=== PATIENT | female | born 1970 | race Two or more races ===

== ENCOUNTER 2024-08-19 11:40 | Emergency (ER) | payer MEDICAID, SELFPAY ==
[2024-08-19 11:41] VITALS: BMI 32.1
[2024-08-19 11:50] VITALS: BP 143/80; PULSE 96; RESP 16; TEMP 36.8; O2SAT 98
--- NOTE | 2024-08-19 11:54 | XR_ITS ---
Examination: CT abdomen and pelvis without contrast. Coronal 3-D reconstructions. Sagittal 2-D reconstructions. Date and time of exam:August 19, 2024 1229 hours Comparison 02/13/2023 INDICATIONS: Lower abdominal pain with nausea vomiting beginning 4 days ago CTDI: vol (mGy): 8.61 DLP: (mGycm): 175 Technique: Axial images of the abdomen have been obtained, 3 mm slice thickness Intravenous contrast material has not been administered. Low dose protocols were performed. One or more of the following dose reduction techniques were used; automated exposure control, adjustment of the mA and/or KV according to patient size, use of iterative reconstruction technique. Findings: No focal liver or splenic lesions Absent gallbladder No pancreatic or adrenal mass No renal or ureteral calculi, no hydronephrosis Aorta normal size 12 mm fat-containing umbilical hernia Normal appendix No bowel obstruction or diverticulitis Urinary bladder intact Absent uterus No pelvic mass Moderate osteopenia IMPRESSION: No renal or ureteral calculi, no hydronephrosis Normal appendix No bowel obstruction diverticulitis or free air
--- NOTE | 2024-08-19 11:54 | PD.EDRME ---
Rapid Medical Screening Exam [facility] Arrival date/time: 08/19/24 11:40 53-year-old female presents to the emergency department complaints of back pain, joint pain, abdominal pain, nausea vomiting Chief Complaint: Abdominal Pain Vital signs: Vital Signs Temperature 98.2 F 08/19/24 11:50 Pulse Rate 96 08/19/24 11:50 Respiratory Rate 16 08/19/24 11:50 Blood Pressure 143/80 H 08/19/24 11:50 Pulse Oximetry (%) 98 08/19/24 11:50 Oxygen Delivery Method Room Air 08/19/24 11:50
[2024-08-19] MEDS: KETOROLAC INJ 30 MG/ML VIAL IM (12:04)
[2024-08-19] MEDS: ONDANSETRON ODT 4 MG TABRAP PO (12:06)
[2024-08-19 12:14] LABS: Collection Type, Urine Clean Catch
[2024-08-19 12:16] LABS: Basophils % (Auto) 0 % (0-2.5); Eosinophils % (Auto) 0 % (0-10); Hematocrit 41.1 % (36.0-46.0); Hemoglobin 14.1 g/dL (12.0-16.0); Immature Granulocytes % (Auto) 0 % (0-0); Immature Granulocytes Auto 0.03 Thou/mm3 (0.00-0.00); Lymphocytes # (Auto) 2.5 Thou/mm3 (1.0-4.8); Lymphocytes % (Auto) 27 % (10-50); Mean Corpuscular HGB Conc 34.3 g/dl (31.0-37.0); Mean Corpuscular Hemoglobin 32.2 pg (25.0-35.0); Mean Corpuscular Volume 94 fL (80-100); Monocytes # (Auto) 0.5 Thou/mm3 (0.0-0.8); Monocytes % (Auto) 5 % (0-12); Neutrophils # (Auto) 6.4 Thou/mm3 (1.8-7.7); Neutrophils % (Auto) 67 % (37-80); Nucleated Red Blood Cell % 0 /100 WBC (0); Platelet Count 281 Thou/mm3 (140-440); RDW Standard Deviation 43.3 fL (36.4-46.3); Red Blood Count 4.38 Miln/mm3 (4.00-5.20); White Blood Count 9.5 Thou/mm3 (3.6-11.0)
[2024-08-19 12:33] LABS: Bacteria,Urine Rare; Bilirubin,Urine Negative (Negative); Blood,Urine Negative (Negative); Clarity,Urine Clear (Clear/Hazy); Color,Urine Lt-Yellow (Lt Yel-Yel); Culture Indicated,Urine Not Indicated; Glucose, Urine Negative (Negative); Ketones,Urine Negative (Negative); Leukocyte Esterase,Urine Negative (Negative); Nitrite,Urine Negative (Negative); Protein,Urine Negative (Neg - Trace); RBC,Urine 1 /hpf (0-3); Specific Gravity,Urine 1.012 (1.001-1.035); Squamous Epithelial Cell,Urine 3 /hpf (0-5); Urobilinogen,Urine Negative mg/dL (0.0-1.0); WBC,Urine < 1 /hpf (0-5)
[2024-08-19 12:33] LABS: Alanine Aminotransferase 15 U/L (10-49); Albumin, Serum 4.6 gm/dL (3.5-5.0); Albumin/Globulin Ratio 1.4 (1.2-2.2); Alkaline Phosphatase 55 U/L (46-116); Anion Gap 11 (7-16); Aspartate Amino Transferase 21 U/L (0-34); BUN/Creatinine Ratio 20 Ratio (12-20); Bilirubin,Total 0.7 mg/dL (0.3-1.2); Blood Urea Nitrogen 10 mg/dL (9-23); Calcium 10.3 mg/dL (8.3-10.6); Calcium (Corrected) 10.3 mg/dL (8.5-10.1); Carbon Dioxide 26.2 mMol/L (20.0-31.0); Chloride 99 mMol/L (98-107); Creatinine (Component) 0.5 mg/dL (0.6-1.3); Estimated Creatinine Clearance 122.3 mL/min (>60); Globulin 3.4 gm/dL (2.3-3.5); Glucose 66 mg/dL (74-106); Lipase 38 U/L (12-53); Osmolality,Calculated 268 (275-295); Potassium 3.1 mMol/L (3.4-5.1); Sodium 136 mMol/L (136-145); Troponin I < 0.002 ng/mL (0.0-0.045); eGFR > 60 See Note
--- NOTE | 2024-08-19 13:13 | EDNOTE_ITS ---
<Statement entered by Janet Toledo MD - 08/19/24 17:56> As co-signing physician, I was present and available for consult prn. I concur with the plan and care as documented by the midlevel provider. ED Abdominal Pain RME/HPI General Chief Complaint: Abdominal Pain Stated complaint: ABD PAIN WITH VOMITING RADIATING UP TO NECK Time seen by provider: 08/19/24 12:45 Arrival date/time: 08/19/24 11:40 53-year-old female presents to the emergency department complaints of back pain, joint pain, abdominal pain, nausea vomiting Limitations: no limitations RME / HPI RME / HPI narrative: 08/19/24 11:40 53-year-old female presents to the emergency department complaints of back pain, joint pain, abdominal pain, nausea vomiting Related Data Home Medications ?Medication ?Instructions ?Recorded ?Confirmed conjugated estrogens 0.625 mg 0.625 mg PO QDAY 9 09/07/22 tablet (Premarin) Previous Rx's ?Medication ?Instructions ?Recorded hydrocortisone 2.5 % topical cream 1 applic AL BID #30 grams 09/08/22 with perineal applicator (Anusol-HC) psyllium husk (aspartame) 3.4 gram 1 packet PO BID #60 ea 09/08/22 oral powder packet (Metamucil Fiber Singles) ibuprofen 600 mg tablet 600 mg PO Q6H #30 tabs 08/19 metoclopramide HCl 10 mg tablet 10 mg PO Q6H PRN nause a and 08/19/24 (Reglan) vomiting #30 tabs Allergies Allergy/AdvReac Type Severity Reaction Status Date / Time No Known Allergies Allergy Verified 08/19/24 11:41 Review of Systems Review of Systems Systems Reviewed: All systems reviewed, normal except as documented Constitutional Constitutional: Reports system reviewed and no additional complaints, except as documented, Reports body ache(s), Denies fever(s) and Denies headache(s) Eyes Eyes: Reports system reviewed and no additional complaints, except as documented and Denies blurry vision ENT Ears, Nose, Mouth, and Throat: Reports system reviewed and no additional complaints, except as documented, Denies headache(s), Denies nasal congestion and Denies nasal discharge Cardiovascular Cardiovascular: Reports system reviewed and no additional complaints, except as documented, Denies chest pain and Denies dyspnea Respiratory Respiratory: Reports system reviewed and no additional complaints, except as documented, Denies chest congestion, Denies cough and Denies dyspnea Gastrointestinal Gastrointestinal: Reports system reviewed and no additional complaints, except as documented and Reports abdominal pain Integumentary/Breasts Skin/Breast: Reports system reviewed and no additional complaints, except as documented and Denies rash Neurologic Neurologic: Reports system reviewed and no additional complaints, except as documented, Reports as per HPI and Denies headache(s) Past Medical History Past Medical History NEUROLOGIC: Positive Neurological Disorders and Migraine; Negative Seizures or Head Trauma CARDIAC: Negative Cardiac Disorders, Congestive Heart Failure, Edema, Cellulitis or Varicose Veins RESPIRATORY: Negative Chronic Obstructive Pulmonary Disease (COPD), Pneumonia, Tuberculosis or Sleep Apnea GASTROINTESTINAL: Positive Gastrointestinal Disorders, Pancreatitis, Gall Bladder Disease, Gastrointestinal Bleed, Hemorrhoids and Gastroesophageal Reflux Disease; Negative Colorectal Cancer GENITOURINARY: Positive Genitourinary Disorders (HEMATURIA); Negative Renal Disease REPRODUCTIVE: Positive Breast Cancer and Previous Pregnancies MUSCULOSKELETAL: Negative Musculoskeletal Disorders ENT: Negative Head Trauma ENDOCRINE: Negative Endocrine Disorders, Diabetes Mellitus Type 1, Diabetes Mellitus Type 2 or Hypothyroidism HEMATOLOGIC: Negative Blood Disorders or Anemia PSYCHO/SOCIAL: Positive Anxiety OTHER HISTORY: Positive Chicken Pox and Breast Cancer; Negative Hospitalization, Autoimmune Disease, Shingles, Falls, Blood Transfusions, Anesthesia Reactions, Chemotherapy, Radiation Therapy, Measles, Mumps, Cancer or Colorectal Cancer Family History FAMILY HISTORY: Positive Family Cancer (MOTHER COLON CA) and Family Surgery; Negative Family Psychiatric Problems, Family Respiratory Disorders, Family Cardiac Disorders, Family Gastrointestinal Problems or Family Anesthesia Reaction Surgical History SURGICAL: Positive Eye Surgery, Abdominal Surgery and Hysterectomy; Negative Cardiac Surgery or Pacemaker Social History SMOKING STATUS: Never smoker SUBSTANCE USE: does not use ED Exam General Limitations: Present no limitations General appearance: Present alert and in no apparent distress Head Head exam: Present atraumatic, normocephalic and normal inspection Eye Eye exam: Present normal appearance, PERRL and EOMI; Absent conjunctival injection ENT ENT exam: Present normal exam, normal oropharynx and mucous membranes moist Neck Neck exam: Present normal inspection, full ROM and trachea midline Chest Chest inspection: Present normal inspection and symmetric chest wall rise Respiratory Respiratory exam: Present normal lung sounds bilaterally; Absent respiratory distress Cardiovascular Cardiovascular exam: Present regular rate, normal rhythm and normal heart sounds Abdominal Exam Abdominal exam: Present soft and normal bowel sounds; Absent distention, tenderness, guarding, rebound or rigidity Extremities Exam Extremities exam: Present normal inspection and full ROM Back Exam Back exam: Present normal inspection and full ROM Neurological Exam Neurological exam: Present alert, oriented X3 and CN II-XII intact Psychiatric Psychiatric exam: Present normal affect and normal mood Skin Skin exam: Present warm, dry, intact and normal color; Absent rash Course Quality Measures none Orders Category Date Time Status CT abdomen pelvis wo con Stat Exams 08/19/24 11:54 Completed CBC Stat Lab 08/19/24 12:05 Completed Comprehensive Metabolic Panel Stat Lab 08/19/24 12:05 Completed Lipase Stat Lab 08/19/24 12:05 Completed Troponin I Stat Lab 08/19/24 12:05 Completed UA, C/S IF [Urinalysis, C/S if Indicated] Stat Lab 08/19/24 12:10 Completed Ketorolac Inj [Toradol Inj] Med 08/19/24 11:53 Discontinued 30 mg IM X1 ONE Ondansetron Odt [Zofran Odt] Med 08/19/24 11:53 Discontinued 4 mg PO X1 ONE Vital Signs Vital signs: Vital Signs Temperature 98.2 F 08/19/24 11:50 Pulse Rate 96 08/19/24 11:50 Respiratory Rate 16 08/19/24 11:50 Blood Pressure 143/80 H 08/19/24 11:50 Pulse Oximetry (%) 98 08/19/24 11:50 Oxygen Delivery Method Room Air 08/19/24 11:50 O2 saturation 98% room air within normal limits Abdominal Pain MDM MDM Narrative MDM Narrative:: 53-year-old female presents to the emergency department complaints of back pain, joint pain, abdominal pain, nausea vomiting On exam patient very well-appearing patient does not appear ill or toxic Symptoms very vague no specific areas of pain just generalized pain fatigue and joint pain Lab work as well as CT scan obtained no acute emergent findings noted Patient discharged home in no distress to follow-up with primary care doctor in the next 24 to 48 hours and for any worsening symptoms to return to the ER immediately Patient data External records reviewed:: [facility] previous records Clinical information provided by:: patient Social determinants that could affect healthcare access:: none Patient has the following chronic illnesses:: None How is presenting disease/condition affected by chronic disease/condition?: no chronic disease Evaluation data The following diagnostics were reviewed and interpreted by me:: lab results and radiology exam(s) Lab and/or radiology exams considered but not ordered:: Labs radiology obtain Interpretation Summary: Reviewed by me Medications / Prescriptions Medications or Prescriptions considered but not ordered:: Given Medication administrations:: Medication Administration History Discontinued Medications Ketorolac Tromethamine (Ketorolac Inj 30 Mg/Ml Vial) 30 mg IM X1 ONE Stop: 08/19/24 11:54 Last Admin: 08/19/24 12:04 Dose: 30 mg Documented By: ASHLEY Ondansetron HCl (Ondansetron Odt 4 Mg Tabrap) 4 mg PO X1 ONE; Protocol Stop: 08/19/24 11:54 Last Admin: 08/19/24 12:06 Dose: 4 mg Documented By: ASHLEY Given Consultations Consultation(s) initiated? (list below): No Diagnosis Differential diagnosis abdominal pain: abdominal pain, acute appendicitis, calculus of kidney, pancreatitis and small bowel obstruction Most likely diagnosis given after review of the tests above:: Abdominal pain, generalized bodyaches Admission Indicated Admission indicated?: not indicated Admission Request Was there a request for admission?: No Disposition Plan Disposition Plan: Discharge Discharge Attestation Discharge Attestation: The patient and all family members were given an opportunity to ask questions and understood the discharge instructions. Discharge instructions specifically effects, indications for sooner follow up or return to the emergency department, and the expected course of current diagnosis. Patient condition: Stable Discharge Plan Plan Patient Disposition: HOME (Self Care) Disposition Comment: Stable Prescriptions/Referrals Prescriptions/Med Rec: New ibuprofen 600 mg tablet 600 mg PO Q6H Qty: 30 0RF metoclopramide HCl [Reglan] 10 mg tablet 10 mg PO Q6H PRN (Reason: nausea and vomiting) Qty: 30 0RF No Action Premarin 0.625 mg Tablet 0.625 mg PO QDAY hydrocortisone [Anusol-HC] 2.5 % cream with perineal applicator 1 applic AL BID Qty: 30 3RF Metamucil Fiber Singles 3.4 gram powder in packet 1 packet PO BID Qty: 60 0RF Referrals: Tiffanie Apple [Primary Care Provider] - 08/20/24 Problem List Clinical Impression: Abdominal pain, Body aches Patient/Caregiver Discharge Instructions Education Materials: Abdominal Pain Additional Instructions: Please follow up with your primary care doctor in the next 24-48hrs for any worsening symptoms return here immediately Print Language: Nepali Stand Alone Forms: [facility] Award Info., Patient Portal Info Letter PA/CATTLE DRIVER Supervising Physician PA/CATTLE DRIVER Supervising Physician: Dr. TOLEDO
== END 2024-08-19 13:25 | disposition home or self-care (01) ==
PROVIDERS: Nurse Practitioner Primary Care; Emergency Provider Emergency Medicine; PCP Registered Nurse Community Health
DX: R10.30 Lower abdominal pain, unspecified (principal); R11.2 Nausea with vomiting, unspecified
CPT/HCPCS: 36415; 74176; 80053; 81001; 83690; 84484; 85025; 87400; 96372; 99284; J1885; Q0162

== ENCOUNTER → 2024-12-19 | Outpatient (CLI) | payer MEDICAID, SELFPAY ==
--- NOTE | 2024-12-19 13:30 | XR_ITS ---
Examination: CT abdomen with intravenous contrast CT pelvis with intravenous contrast 2-D coronal reconstructions 2-D sagittal reconstructions Date and time of exam:December 19, 2024 1350 hours Comparison August 19, 2024 INDICATIONS: Right upper abdominal pain beginning one year ago. CTDI: vol (mGy) 8.75 DLP: (mGycm) 501 Technique: Multiple axial sections of the abdomen and pelvis have been obtained. 64 slice high-resolution scanner used. 3 mm axial sections have been obtained, post intravenous injection 60 cc [id number] 2-D sagittal, coronal reconstructions obtained. Low dose protocols were performed. One or more of the following dose reduction techniques were used; automated exposure control, adjustment of the mA and/or KV according to patient size, use of iterative reconstruction technique. Findings: No focal liver lesions Absent gallbladder Spleen not enlarged No pancreatic or adrenal mass No extra hepatic biliary tract dilatation No renal or ureteral calculi, no hydronephrosis Aorta normal size Normal appendix No bowel obstruction No bladder mass Absent uterus No pelvic mass L4-L5 3 mm central lumbar disc bulge IMPRESSION: Absent gallbladder No renal or ureteral calculi, no hydronephrosis Normal appendix No bowel obstruction diverticulitis or free air
== END | disposition home or self-care (01) ==
PROVIDERS: PCP Nurse Practitioner; Referring Provider Nurse Practitioner; Visit Provider Nurse Practitioner
DX: R10.11 Right upper quadrant pain (principal); Z90.49 Acquired absence of other specified parts of digestive tract
CPT/HCPCS: 74177; A4649; Q9967